=== PATIENT | male | born 1970 | race African-American/Black ===

== ENCOUNTER 2017-12-19 18:51 | Emergency (ER) | payer MEDICARE, MEDICAID ==
[~2017-12-19] VITALS: Ht 190.5 cm; Wt 148.1 kg
[~2017-12-19 18:51] MED LIST: TRIA1CAP6 PO
[2017-12-19] MEDS ORDERED: DICL50TA9 MT (20:00)
[2017-12-19] MEDS ORDERED: METF10004 MT (20:00)
[2017-12-19 21:05] VITALS: BP 165/100
[2017-12-19] MEDS ORDERED: LIDOCAINE HCL 1% 20ML VIAL (Pyxis) INJ INFIL ONE (22:30)
[2017-12-19] MEDS ORDERED: LIDOCAINE HCL/PF 1% 10 MG/ML 5ML VIAL IJ NR (22:45)
== END 2017-12-20 01:00 | disposition home or self-care (01) ==
LOC: ER 18:51
DX: L02.01 Cutaneous abscess of face (principal); L73.9 Follicular disorder, unspecified; E11.9 Type 2 diabetes mellitus without complications; I10 Essential (primary) hypertension; F17.200 Nicotine dependence, unspecified, uncomplicated; Z98.890 Other specified postprocedural states
CPT/HCPCS: 10060; 99283; J3490